=== PATIENT | male | born 1985 | race Caucasian/White ===

== ENCOUNTER 2020-10-06 16:29 | Emergency (ER) | payer SELFPAY ==
--- NOTE | ~2020-10-06 | XR_ITS ---
EXAMINATION: XR chest 2V EXAM DATE: 10/06/2020 17:01 INDICATION: Midsternal chest pain for an hour. TECHNIQUE: Frontal and lateral projections of the chest obtained and reviewed. There is no prior matheus dy for comparison. FINDINGS: The lungs are clear. There are no pleural effusions. The cardiomediastinal silhouette is within normal limits. There is no pneumothorax suspected. The bones and soft tissues are unremarkab le. IMPRESSION: No acute cardiopulmonary findings. Reviewed, dictated and finalized at location B.
--- NOTE | 2020-10-06 16:30 | ECG_ITS ---
Measurements Intervals [place] Rate: 90 P: 29 CT: 145 QRS: 10 QRSD: 103 T: 5 QT: 355 QTc: 435 Interpretive Statements SINUS RHYTHM DELAYED PRECORDIAL R/S TRANSITION NONSPECIFIC ST ELEVATION IN ANTEROLAT/HIGH LAT LEADS BORDERLINE T WAVE ABNORMALITY- INFERIOR LEADS BORDERLINE ECG Electronically Signed On 10-07-2020 6:27:40 CDT by Chad Campos D.O.
[2020-10-06 16:59] LABS: Basophils Percent Auto 0.5 % (0.2-1.2); Eosinophils Absolute Auto 0.2 K/mm3 (0-0.3); Eosinophils Percent Auto 2.2 % (0-4.4); Hematocrit 48.7 % (42.0-52.0); Hemoglobin 16.6 g/dL (14.0-18.0); Immature Granulocyte Absolute 0.05 K/mm3 (0.00-0.031); Immature Granulocyte Percent A 0.6 % (0-0.5); Lymphocytes Absolute Auto 2.95 K/mm3 (0.9-3.2); Lymphocytes Percent Auto 38.3 % (18.3-44.2); Mean Corpuscular HGB Conc 34.1 g/dl (32-36); Mean Corpuscular Hemoglobin 30.1 pg (26-34); Mean Corpuscular Volume 88.4 fl (80-100); Mean Platelet Volume 11.3 fl (7.4-10.4); Monocytes Absolute Auto 0.7 K/mm3 (0.1-0.6); Monocytes Percent Auto 9.2 % (2.6-8.5); Neutrophils Absolute Auto 3.8 K/mm3 (1.3-6.7); Neutrophils Percent Auto 49.2 % (45.5-73.1); Platelet Count Result 166 k/mm3 (150-375); Red Blood Count 5.51 M/mm3 (4.6-6.20); Red Cell Distribution Width 12.5 % (11.5-14.5); White Blood Count 7.7 K/mm3 (4.5-10.0)
[2020-10-06 17:10] LABS: Anion Gap 9 mmol/L (8-16); Blood Urea Nitrogen 13 mg/dL (9-20); Calcium 9.3 mg/dL (8.4-10.2); Carbon Dioxide 26 mmol/L (22-30); Chloride 105 mmol/L (98-107); Estimated Glomerular Filt Rate > 60; Glucose 120 mg/dL (65-110); Sodium 140 mmol/L (137-145)
[2020-10-06 17:13] VITALS: BP 143/93; PULSE 91; RESP 18; TEMP 36.2; O2SAT 98
[2020-10-06 17:13] LABS: INR 0.9; Prothrombin Time 12.1 Seconds (11.1-14.7)
[2020-10-06 17:14] LABS: Partial Thromboplastin Time 26.6 SECONDS (22.3-36.8)
[2020-10-06 17:21] LABS: Troponin I < 0.012 ng/mL (0.000-0.034)
--- NOTE | 2020-10-06 21:38 | PC.NURSE ---
Patient called to triage x2 at 1945
== END 2020-10-06 22:01 | disposition left against medical advice (07) ==
PROVIDERS: Emergency Provider Emergency Medicine; PCP Nurse Practitioner Psychiatric/Mental Health
DX: R07.9 Chest pain, unspecified (principal)
CPT/HCPCS: 36415; 71046; 80048; 84484; 85025; 85610; 85730; 93005; 99199

== ENCOUNTER 2020-11-11 10:19 | Emergency (ER) | payer BC, SELFPAY ==
[2020-11-11 10:32] VITALS: BP 162/92; PULSE 79; RESP 16; TEMP 36.3; O2SAT 98
--- NOTE | 2020-11-11 10:35 | ED.URI ---
HPI - URI/Sore Throat General Chief Complaint: Upper Respiratory Infection Stated Complaint: SORE THROAT Source: patient and RN notes reviewed Mode of arrival: ambulatory History of Present Illness HPI Narrative: This is a 35-year-old male who presented to urgent care with with complaints of a sore throat and fatigue. According to patient he came into close contact with someone that tested positive for strep and requested that he be tested for strep. Patient notes that he has hydrated his self to prevent dehydration he has not taken any medications. The patient denies SOB, CP, palpitation, extremity numbness, lightheadedness, dizziness, constipation, diarrhea, chills, or fever. Strep negative MD elicited complaint: sore throat Related Data Home Medications Medication Instructions Recorded Confirmed bupropion HCl mg PO 11/11/20 methimazole 11/11/20 sertraline mg 11/11/20 trazodone 11/11/20 zolpidem 11/11/20 Allergies Allergy/AdvReac Type Severity Reaction Status Date / Time Sulfa (Sulfonamide Allergy Verified 10/24/11 18:02 Antibiotics) Review of Systems Review of Systems: A 14 organ system Review of Systems was performed and pertinent positives included in the HPI, otherwise remaining ROS is negative. [facility] Family History Family History (Updated 11/11/20 @ 10:37 by CARLA Moses) Other Family history non-contributory Exam Narrative: GENERAL: This is a well-nourished, well-developed patient, in no apparent distress. HEAD: normocephalic, atraumatic. EYES: PERRL. Sclera clear/white. Vision is grossly intact. EARS: External ears normal, auditory canals clear and without drainage, TMs normal without perforation. Hearing grossly intact. NOSE: External nose normal with no obvious nasal discharge, nares without redness, no rhinorrhea. THROAT: Mucous membranes moist, posterior pharynx erythema, enlarged tonsils without exudate. NECK: Neck supple, non-tender without lymphadenopathy, masses or thyromegaly. CARDIOVASCULAR: Regular rate and rhythm without murmurs, gallops, or rubs. RESPIRATORY: Clear to auscultation. Breath sounds equal bilaterally. No wheezes, rales, or rhonchi. GASTROINTESTINAL: Abdomen soft, non-tender, nondistended. Bowel sounds are active. No hepato-splenomegaly, or palpable masses. No guarding. SKIN: warm, intact with no suspicious lesions or rash, good texture and turgor. NEURO: awake, alert, and oriented to person, place and time. There were no obvious focal neurologic abnormalities. Steady gait EXTREMITIES: Normal range of motion. No edema. No calf tenderness. Negative Homans sign bilaterally. BACK: Nontender without deformity or crepitance. No flank tenderness. Course Course Emergency Course: Patient will discharge home with Augmentin Vital Signs Vital signs: Vital Signs Temperature 97.3 F L 11/11/20 10:32 Pulse Rate 79 11/11/20 10:32 Respiratory Rate 16 11/11/20 10:32 Blood Pressure 162/92 H 11/11/20 10:32 Pulse Oximetry 98 11/11/20 10:32 Temperature 97.3 F L 11/11/20 10:32 Pulse Rate 79 11/11/20 10:32 Respiratory Rate 16 11/11/20 10:32 Blood Pressure 162/92 H 11/11/20 10:32 Pulse Oximetry 98 11/11/20 10:32 MDM - URI/Sore Throat Differential Diagnosis Differential diagnosis: Likely upper respiratory infection, sinusitis, pharyngitis and other (Strep) Lab Data Labs: Strep Screen Presumptive Negative *(Reference Range: Negative)* Discharge Plan Discharge Clinical Impression: Sore throat Pharyngitis Qualifiers: Pharyngitis/tonsillitis etiology: unspecified etiology Qualified Code(s): J02.9 - Acute pharyngitis, unspecified Patient Disposition: Home, Self-Care Condition: Stable Instructions: Antibiotic Form, Pharyngitis (ED) Additional Instructions: Increase fluids especially juices and water [id number] cough and cold medicine of your choic
== END 2020-11-11 10:47 | disposition home or self-care (01) ==
PROVIDERS: Emergency Provider Nurse Practitioner; PCP Nurse Practitioner Family
DX: J02.9 Acute pharyngitis, unspecified (principal)
CPT/HCPCS: 87081; 87880; 99213; G0463

== ENCOUNTER 2021-02-27 12:04 | Emergency (ER) | payer BC, SELFPAY ==
[2021-02-27 12:14] VITALS: BP 144/94; PULSE 109; RESP 16; TEMP 36.2; O2SAT 97
--- NOTE | 2021-02-27 12:36 | ED.URI ---
HPI - URI/Sore Throat General Chief Complaint: Upper Respiratory Infection Stated Complaint: cough,vomiting Time Seen by Provider: 02/27/21 12:36 Source: patient, RN notes reviewed and old records reviewed Mode of arrival: ambulatory Limitations: no limitations History of Present Illness HPI Narrative: 36-year-old male presents to the [facility] with complaints of coughing for the last 2 to 3 days. States that he coughed so hard today that he was coughing up or vomited some thick mucus. Denies fevers. No shortness of breath. No abdominal pain or chest pain. Related Data Home Medications Medication Instructions Recorded Confirmed bupropion HCl 150 mg PO DAILY 11/11/20 02/27/21 methimazole 10 mg PO DAILY 11/11/20 02/27/21 sertraline 100 mg PO DAILY 11/11/20 02/27/21 trazodone 50 mg PO HS 11/11/20 02/27/21 zolpidem 10 mg PO HS PRN 11/11/20 02/27/21 hydroxyzine HCl 25 mg PO Q8-10H PRN 02/27/21 02/27/21 Allergies Allergy/AdvReac Type Severity Reaction Status Date / Time Sulfa (Sulfonamide Allergy Hives Verified 02/27/21 12:11 Antibiotics) Review of Systems Review of Systems: All systems reviewed & are unremarkable except as noted in HPI and below Constitutional: Constitutional: Reports no additional constitutional complaints, Denies chills and Denies fever(s) Eyes: Eyes: Reports no additional eye complaints ENT: Reports system reviewed and no additional complaints, except as documented Cardiovascular: Cardiovascular: Reports no additional cardiovascular complaints, Denies chest pain, Denies rapid heart rate, Denies radiating jaw, neck or arm pain and Denies slow heart rate Respiratory: Respiratory: Reports as per HPI, Reports chest congestion, Reports cough, Denies dyspnea and Denies wheezing Gastrointestinal: Gastrointestinal: Reports no additional gastrointestinal complaints Musculoskeletal: Musculoskeletal: Reports no additional musculoskeletal complaints Integumentary/Breasts: Skin/Breast: Reports system reviewed and no additional complaints, except as docu Neurologic: Reports system reviewed and no additional complaints, except as documented Psychiatric: Psychiatric: Reports no additional psychiatric complaints Allergic/Immunologic: Allergic/Immunologic: Reports no additional allergic/immunologic complaints PMFSH Past Medical History Medical History (Updated 02/27/21 @ 16:32 by Anjali Mora) Depression with anxiety Family History Family History Other Family history non-contributory Social History Social History (Updated 02/27/21 @ 16:32 by Anjali Mora) Living arrangements: with family Gender identity (if verbalized by the patient): Male Comments At the time of my signature, I reviewed and agree with the nursing past medical, surgical, social, and family history. There is no relevant family history pertinent to the patient complaint. Exam Const: General: healthy appearing, no acute distress and alert Nutritional Appearance: well nourished and obese Orientation/consciousness: patient oriented x3 Limitations: no limitations HENMT: Head: normal to inspection Ears: external ears normal, TM's normal bilaterally and EAC's normal General nose exam: Abnormal mucous membranes and turbinates present boggy bilateral; not erythematous and Nasal discharge present clear Face and sinus: normal facial exam and sinuses nontender Mouth: Yes lip normal Throat: uvula midline and postnasal drainage Eyes: Conjunctivae: conjunctivae normal Pupils: Equal, round and reactive pupils present Neck: Neck: normal visual inspection, no lymphadenopathy and no meningeal signs Chest: Chest palpation & inspection: normal inspection of the chest Resp: Effort & Inspection: normal respiratory effort and no use of accessory muscles Auscultation: clear to auscultation bilaterally, no crackles, no rales, no rhonchi and no wheezes Cardio: Rate: regular rate
== END 2021-02-27 12:52 | disposition home or self-care (01) ==
PROVIDERS: Emergency Provider Nurse Practitioner; PCP Nurse Practitioner Family
DX: J40 Bronchitis, not specified as acute or chronic (principal); R09.82 Postnasal drip; F41.8 Other specified anxiety disorders
CPT/HCPCS: 99213; G0463

== ENCOUNTER 2022-12-06 17:03 | Emergency (ER) | payer BC, SELFPAY ==
--- NOTE | ~2022-12-06 | XR_ITS ---
EXAM: XR ankle RT min 3V, XR foot RT min 3V DATE: 12/06/2022 17:25 HISTORY: bruising, pain lateral foot/ankle . COMPARISON: None available. FINDINGS: Normal mineralization. No acute fracture or dislocation. No lytic or blastic lesion. Scatt ered degenerative changes. Moderate Achilles and plantar enthesopathy. Tiny ossific fragment at the t ip of the lateral malleolus Chronic appearing medial malleolar avulsion fracture fragments. Chronic a ppearing lateral talar process fracture fragment. Chronic appearing fragmentation along the anterior talus possibly from old capsular avulsion injury. No erosion or periosteal change. Subcutaneous edema /ankle swelling. IMPRESSION: Tiny ossific fragment at the tip of the lateral malleolus may represent an acute or chron ic avulsion fracture fragment. Chronic changes, including old fractures detailed above. Reviewed, dictated and finalized at location K. IMPRESSION: Tiny ossific fragment at the tip of the lateral malleolus may repre sent an acute or chronic avulsion fracture fragment. Chronic changes, including old fractures detailed above.
[2022-12-06 17:13] VITALS: BP 137/86; PULSE 91; RESP 16; TEMP 36.6; O2SAT 98
--- NOTE | 2022-12-06 17:29 | ED.LOWEXIN ---
HPI - Extremity Injury (Lower) General Chief Complaint: Extremity Injury, Lower Stated Complaint: Injured ankle Time Seen by Provider: 12/06/22 17:31 Source: patient, RN notes reviewed and old records reviewed Mode of arrival: ambulatory Limitations: no limitations History of Present Illness HPI Narrative: 37 year old male presents to [facility] care accompanied by with complaints of pain to right lateral ankle and foot with swelling and bruising to the lateral aspect of patients foot and ankle present. Patient reports that this occurred yesterday when he tried to go over a fence instead of around it and twisted hie right foot and ankle on way down. Patient reports increased pain with weight bearing, has taken Ibuprofen and has used ice to his lateral right ankle. MD complaint: ankle injury and foot injury Onset (ago): day(s) (1) Severity scale (1-10): 3 Treatments prior to arrival: cold therapy and NSAIDS Related Data Home Medications Medication Instructions Recorded Confirmed bupropion HCl 150 mg 24 hr tablet, 150 mg PO DAILY 11/11/20 12/06/22 extended release sertraline 100 mg tablet 100 mg PO DAILY 11/11/20 12/06/22 alprazolam 0.5 mg tablet 0.5 mg PO PRN PRN Anxiety 12/06/22 12/06/22 levothyroxine 200 mcg tablet 200 mcg PO DAILY 12/06/22 12/06/22 zolpidem 5 mg tablet 5 mg PO DAILY 12/06/22 12/06/22 Allergies Allergy/AdvReac Type Severity Reaction Status Date / Time Sulfa (Sulfonamide Allergy Hives Verified 12/06/22 17:17 Antibiotics) Review of Systems Review of Systems: CONSTITUTIONAL: Denies fever, chills, or sweats. EYES: Denies visual changes, redness, or discharge. ENT: Denies rhinorrhea, congestion, sore throat, or otalgia. CARDIOVASCULAR: Denies chest pain, palpitations, or edema. RESPIRATORY: Denies cough or dyspnea. GASTROINTESTINAL: Denies abdominal pain, nausea, vomiting, or diarrhea. GENITOURINARY: Denies dysuria or hematuria. SKIN: Denies rash or itching. MUSCULOSKELETAL: Denies back pain, positive for right lateral ankle and foot pain, or myalgia. NEUROLOGIC: Denies headache, numbness, or weakness. PSYCHIATRIC: Reports history of anxiety or depression. All systems reviewed & are unremarkable except as noted in HPI and below PMFSH Past Medical History Medical History (Updated 12/06/22 @ 19:56 by Odilia Benitez NP) Depression with anxiety History of Graves' disease Surgical History Surgical History (Updated 12/06/22 @ 20:00 by Odilia Benitez NP) History of hip surgery left Family History Family History Other Family history non-contributory Social History Social History (Updated 12/06/22 @ 20:02 by Odilia Benitez NP) Smoking status: Never smoker Alcohol intake: current Alcohol use details: rare Substance use type: does not use Living arrangements: with family Additional occupation/education comments: registered nurse Gender identity (if verbalized by the patient): Male Comments At time of signature, agree with nursing past medical, surgical, social and family history. There is no relevant family history pertinent to the presenting complaint Exam Narrative: GENERAL: Well-appearing, well-nourished,obese, and in no acute distress. HEAD: Normocephalic, atraumatic. EYES: PERRLA and EOMI. ENT: Nares clear, no rhinorrhea or epistaxis. Mucous membranes moist. NECK: Supple. no lymphadenopathy CHEST: Clear to auscultation. No respiratory distress.SAO2 98% on room air HEART: Regular rate and rhythm. No murmur heard. Normal peripheral pulses. ABDOMEN: Soft, nontender, nondistended, normal active bowel sounds. EXTREMITIES: Normal range of motion. positive for edema to lateral right foot and ankle with bruising, increased pain with attempted weight bearing and movement of right foot and ankle. strong pedal pulse present, foot warm and pink. Patient reports that he knows how to use crutches well he vaca
== END 2022-12-06 18:21 | disposition home or self-care (01) ==
PROVIDERS: Emergency Provider Registered Nurse
DX: S82.891A Other fracture of right lower leg, initial encounter for closed fracture (principal); X50.9XXA Other and unspecified overexertion or strenuous movements or postures, initial encounter; F41.9 Anxiety disorder, unspecified; F32.A Depression, unspecified; E05.00 Thyrotoxicosis with diffuse goiter without thyrotoxic crisis or storm
CPT/HCPCS: 73610; 73630; 99214; G0463